=== PATIENT | female | born 1995 | race Caucasian/White ===

== ENCOUNTER 2019-06-12 18:37 | Inpatient (IN) | payer OTHER ==
[2019-06-12] MEDS ORDERED: RINGERS SOLUTION,LACTATED 300 ML IV ONE (19:05)
[2019-06-12 19:12] LABS: APPEARANCE,URINE SLIGHTLY-CLOUDY; BILIRUBIN,URINE NEGATIVE (NEGATIVE); COLOR,URINE YELLOW; GLUCOSE, URINE NEGATIVE (NEGATIVE); KETONES,URINE NEGATIVE (NEGATIVE); LEUKOCYTE ESTERASE,URINE SMALL (NEGATIVE); NITRITE,URINE NEGATIVE (NEGATIVE); PROTEIN,URINE 30 mg/dL (NEGATIVE); URINE SPECIFIC GRAVITY 1.009; UROBILINOGEN,URINE NEGATIVE mg/dL (<2.0)
[2019-06-12 19:32] LABS: URINE AMPHETAMINES SCREEN NEGATIVE; URINE BARBITURATES SCREEN NEGATIVE; URINE BENZODIAZEPINES SCREEN NEGATIVE; URINE COCAINE SCREEN NEGATIVE; URINE MARIJUANA (THC) SCREEN NEGATIVE; URINE METHADONE SCREEN NEGATIVE; URINE PHENCYCLIDINE SCREEN NEGATIVE
[2019-06-12] MEDS ORDERED: DINOPROSTONE 10 MG VAGINAL INSERT.SR ONE (19:38)
[2019-06-12] MEDS: RINGERS SOLUTION,LACTATED 1,000 ML IV PRN ×2 (19:43→23:42)
[2019-06-12 20:01] LABS: ABSOLUTE EOSINOPHILS # (AUTO) 0.1 10^3/uL (0.0-0.6); ABSOLUTE LYMPHOCYTES (AUTO) 1.2 10^3/uL (0.5-4.7); ABSOLUTE MONOCYTES (AUTO) 0.5 10^3/uL (0.1-1.4); ABSOLUTE NEUT (AUTO) 7.8 10^3/uL (1.7-8.2); BASOPHILS % (AUTO) 0.2 % (0-2); EOSINOPHILS % (AUTO) 1.1 % (0-6); HEMATOCRIT 30.5 % (36.0-47.0); HEMOGLOBIN 10.3 g/dL (12.0-15.5); LYMPHOCYTES % (AUTO) 12.2 % (13-45); MEAN CORPUSCULAR HEMOGLOBIN 25.6 pg (27.0-33.4); MEAN CORPUSCULAR HGB CONC 33.8 g/dL (32.0-36.0); MEAN CORPUSCULAR VOLUME 76 fl (80-97); MONOCYTES % (AUTO) 5.3 % (3-13); PLATELET COUNT 182 10^3/uL (150-450); RED BLOOD COUNT 4.02 10^6/uL (3.72-5.28); RED CELL DISTRIBUTION WIDTH 16.1 % (11.5-14.0); SEGMENTED NEUTROPHILS % (AUTO) 81.2 % (42-78); TOTAL CELLS COUNTED % (AUTO) 100 %; WHITE BLOOD COUNT 9.6 10^3/uL (4.0-10.5)
[2019-06-12] MEDS ORDERED: ZOLPIDEM TARTRATE 5 MG TABLET ONE (23:40)
[2019-06-13] MEDS ORDERED: ZOLPIDEM TARTRATE 5 MG TABLET PO ONE
[2019-06-13] MEDS ORDERED: PROMETHAZINE HCL INJ 25 MG/1 ML VIAL IV ONE (05:15)
[2019-06-13] MEDS ORDERED: NALBUPHINE HCL INJ 10 MG/1 ML AMPULE INJ ONE (05:15)
[2019-06-13] MEDS ORDERED: PROMETHAZINE HCL INJ 25 MG/1 ML VIAL ONE (05:16)
[2019-06-13] MEDS ORDERED: MISOPROSTOL 0.2 MG TABLET ONE (05:17)
[2019-06-13] MEDS ORDERED: LIDOCAINE 1% INJ-PF (10 MG/ML) 30 ML SDV ONE (05:17)
[2019-06-13] MEDS ORDERED: NALBUPHINE HCL INJ 10 MG/1 ML AMPULE ONE (05:17)
[2019-06-13] MEDS ORDERED: OXYTOCIN/NORMAL SALINE 20 UNIT/1,000 ML RTUINJ ONE ×2 (05:17→23:56)
[2019-06-13] MEDS ORDERED: OXYTOCIN 10 UNIT/ML VIAL ONE ×2 (05:17→23:55)
--- NOTE | 2019-06-13 07:12 | Admission Physical ---
Datetime Report Generated by CPN: 06/13/2019 07:12 CURRENT ADMISSION Chief Complaint: Scheduled Induction of Labor Indication for Induction: Gestational HTN Admit Impression : Term, Intrauterine ; Induction of Labor Admit Plan: Admit to Unit; Initiate Labor Induction Protocol ALLERGIES Medication Allergies: No Medication Allergies: No Known Allergies (06/12/2019) Latex: No Latex Allergies Food Allergies: none Environmental Allergies: None OBSTETRICAL HISTORY EDC: 06/21/2019 00:00 : 1 Para: 0 Term: 0 : 0 SAB: 0 IAB: 0 Ectopic: 0 Livin Cesareans: 0 VBACs: 0 Multiple Births: 0 Gestational Diabetes: No Rh Sensitization: No Incompetent Cervix: No SEFERINO: No Infertility: No ART Treatment: No Uterine Anomaly: No IUGR: No Hx Previous C/S: No Macrosomia: No Hx Loss/Stillborn: No PIH: No Hx : No Placenta Previa/Abruption: No Depression/PP Depression: No PTL/PROM: No Post Hemorrhage: No Current Procedures: Ultrasound; NST Obstetrical History Comments: G1 - Current SEE RECORDS Alcohol: No Marijuana : No Cocaine: No Other Illicit Drugs: No Cigarettes: Never Smoker. [id number] MEDICAL HISTORY Diabetes: No Blood Transfusion: No Pulmonary Disease (Asthma, TB): No Breast Disease: No Hypertension: Yes Nutritional Chemist Surgery: No Heart Disease: No Hosp/Surgery: No Autoimmune Disorder: No Anesthetic Complications: No Kidney Disease: No Abnormal Pap Smear: No Neuro/Epilepsy: No Psychiatric Disorders: Yes Other Medical Diseases: No Hepatitis/Liver Disease: No Significant Family History: No Varicosities/Phlebitis: No Trauma/Violence : No Thyroid Dysfunction: No Medical History Comments: Gestational HTN, Generalized Anxiety Disorder INFECTIOUS HISTORY Gonorrhea: No Genital Herpes: No Chlamydia: No Tuberculosis: No Syphilis: No Hepatitis: No HIV/AIDS Exposure: No Rash or Viral Illness: No HPV: No PHYSICAL EXAM General: Normal HEENT: Normal Neurologic: Normal Thyroid: Normal Heart: Normal Lungs: Normal Breast: Normal Back: Normal Abdomen: Normal Genitourinary Exam: Normal Extremities: Normal DTRs: Normal Pelvic Type: Adequate Vital Signs: Reviewed VAGINAL EXAM Dilatation: 3 Effacement: 80 Station: -1 MEMBRANES Pooling: Negative Membranes: Intact FETUS A EGA: 38.6 Monitoring: External US FHR- Baseline: 150 Variability: Moderate 6-25bpm Accelerations: 15X15 Decelerations: None FHR Category: Category I Estimated Weight (gm): 3500 Presentation: Vertex PLANS FOR LABOR AND DELIVERY Labor and Delivery: None Pain Management: Epidural Feeding Preference: Breast Circumcision: N/A INFORMED CONSENT Signature: with User ID: [email or web address]
[2019-06-13] MEDS: RINGERS SOLUTION,LACTATED 1,000 ML IV PRN ×3 (07:33→17:29)
[2019-06-13] MEDS ORDERED: BUPIVACAINE HCL 0.25 % INJ/PF (2.5 MG/1 ML) 30 ML VIAL ONE (11:37)
[2019-06-13] MEDS ORDERED: FENTANYL CITRATE INJ/PF 100 MCG/2 ML AMPUL ONE ×2 (11:37→23:56)
[2019-06-13] MEDS ORDERED: FENTANYL/BUPIVACAINE/NS/PF 300 MCG/150 ML RTUINJ EPI ONE (11:37)
[2019-06-13] MEDS ORDERED: EPHEDRINE SULFATE INJ 50 MG/1 ML AMPULE ONE ×3 (11:37→23:56)
[2019-06-13] MEDS ORDERED: PHENYLEPHRINE HCL INJ/PF 10 MG/1 ML SDV ONE ×2 (11:37→23:57)
[2019-06-13] MEDS ORDERED: MAG HYDROX/AL HYDROX/SIMETH SUSP 30 ML UDCUP ONE (14:36)
[2019-06-13] MEDS ORDERED: GENTAMICIN SULFATE INJ 80 MG/2 ML VIAL IV ONE (18:38)
[2019-06-13] MEDS ORDERED: ACETAMINOPHEN 325 MG TABLET ONE (18:45)
[2019-06-13] MEDS ORDERED: AMPICILLIN SODIUM 2 GM in NORMAL SALINE 100 ML IV ONE (19:00)
[2019-06-13] MEDS ORDERED: ACETAMINOPHEN 325 MG TABLET PO ONE (19:03)
[2019-06-13] MEDS ORDERED: GENTAMICIN SULFATE INJ 80 MG/2 ML VIAL ONE (19:06)
[2019-06-13 19:09] LABS: ABSOLUTE BASOPHILS # (AUTO) 0.1 10^3/uL (0.0-0.2); ABSOLUTE LYMPHOCYTES (AUTO) 1.3 10^3/uL (0.5-4.7); ABSOLUTE MONOCYTES (AUTO) 0.8 10^3/uL (0.1-1.4); ABSOLUTE NEUT (AUTO) 12.1 10^3/uL (1.7-8.2); BASOPHILS % (AUTO) 0.4 % (0-2); HEMATOCRIT 32.9 % (36.0-47.0); HEMOGLOBIN 10.6 g/dL (12.0-15.5); LYMPHOCYTES % (AUTO) 9.3 % (13-45); MEAN CORPUSCULAR HEMOGLOBIN 24.8 pg (27.0-33.4); MEAN CORPUSCULAR HGB CONC 32.2 g/dL (32.0-36.0); MEAN CORPUSCULAR VOLUME 77 fl (80-97); MONOCYTES % (AUTO) 5.4 % (3-13); PLATELET COUNT 190 10^3/uL (150-450); RED BLOOD COUNT 4.26 10^6/uL (3.72-5.28); RED CELL DISTRIBUTION WIDTH 16.7 % (11.5-14.0); SEGMENTED NEUTROPHILS % (AUTO) 84.9 % (42-78); TOTAL CELLS COUNTED % (AUTO) 100 %; WHITE BLOOD COUNT 14.2 10^3/uL (4.0-10.5)
[2019-06-13] MEDS ORDERED: LIDOCAINE 2% INJ-PF (20 MG/ML) 10 ML AMPUL ONE ×3 (19:11→23:54)
[2019-06-13 19:23] LABS: ALBUMIN 3.3 g/dL (3.5-5.0); ALKALINE PHOSPHATASE 238 U/L (38-126); ANION GAP 10 (5-19); ASPARTATE AMINO TRANSFERASE 25 U/L (14-36); BILIRUBIN,DIRECT 0.3 mg/dL (0.0-0.4); BILIRUBIN,TOTAL 0.5 mg/dL (0.2-1.3); BLOOD UREA NITROGEN 8 mg/dL (7-20); CALCIUM 8.8 mg/dL (8.4-10.2); CARBON DIOXIDE 19 mmol/L (22-30); CHLORIDE 106 mmol/L (98-107); GLUCOSE 86 mg/dL (75-110); POTASSIUM 4.4 mmol/L (3.6-5.0); TOTAL PROTEIN 6.5 g/dL (6.3-8.2); URIC ACID 5.7 mg/dL (2.5-6.2)
[2019-06-13] MEDS ORDERED: CEFAZOLIN INJ 1 GM VIAL ONE (23:39)
[2019-06-13] MEDS ORDERED: CITRIC ACID/SODIUM CITRATE ORAL SOLN 15 ML UDCUP ONE (23:39)
[2019-06-13] MEDS ORDERED: CEFAZOLIN SODIUM 2 GM in DEXTROSE 5%-WATER 50 ML IV PRN (23:42)
[2019-06-13] MEDS ORDERED: SODIUM BICARBONATE 4.2% INJ (2.5 MEQ/5 ML) VIAL ONE (23:43)
[2019-06-13] MEDS ORDERED: LIDOCAINE 1.5%/EPINEPHRINE INJ 5 ML AMP ONE (23:43)
[2019-06-13] MEDS ORDERED: ONDANSETRON HCL INJ/PF 4 MG/2 ML SDV ONE (23:56)
[2019-06-13] MEDS ORDERED: MIDAZOLAM 2 MG/2 ML INJ ONE (23:56)
[2019-06-13] MEDS ORDERED: KETOROLAC TROMETHAMINE INJ/PF 30 MG/1 ML SDV ONE (23:56)
[2019-06-13] MEDS ORDERED: ACETAMINOPHEN 1,000 MG/100 ML RTUPB IV ONE (23:56)
[2019-06-14] MEDS ORDERED: LIDOCAINE 1.5%/EPINEPHRINE INJ 5 ML AMP ONE (00:04)
[2019-06-14] MEDS ORDERED: METHYLENE BLUE 50 MG/10 ML AMPULE ONE (01:09)
[2019-06-14] MEDS ORDERED: MIDAZOLAM 2 MG/2 ML INJ ONE (01:17)
[2019-06-14] MEDS ORDERED: OXYTOCIN 10 UNIT/ML VIAL ONE ×2 (01:18)
[2019-06-14] MEDS ORDERED: HYDROMORPHONE HCL INJ/PF 2 MG/ML AMPULE IV PRN (02:17)
[2019-06-14] MEDS ORDERED: SIMETHICONE 80 MG TAB.CHEW PO PRN (02:17)
[2019-06-14] MEDS ORDERED: RINGERS SOLUTION,LACTATED 1,000 ML IV PRN (02:17)
[2019-06-14] MEDS ORDERED: PROMETHAZINE HCL INJ 25 MG/1 ML VIAL IV PRN (02:17)
[2019-06-14] MEDS ORDERED: DIPH/PERTUSS(ACELL)/TETANUS VAC/PF 0.5 ML SYR (>=10YO) IM PRN (02:17)
[2019-06-14] MEDS ORDERED: MEASLES,MUMPS&RUBELLA VACC/PF 0.5 ML VIAL SUBCUT PRN (02:17)
[2019-06-14] MEDS ORDERED: NORMAL SALINE 1000 ML 1,000 ML IV PRN (02:17)
[2019-06-14] MEDS ORDERED: ACETAMINOPHEN 1,000 MG/100 ML RTUPB IV PRN (02:17)
[2019-06-14] MEDS ORDERED: OXYTOCIN/NORMAL SALINE 20 UNIT/1,000 ML RTUINJ IV PRN (02:17)
[2019-06-14] MEDS ORDERED: ACETAMINOPHEN 325 MG TABLET PO PRN (02:17)
[2019-06-14] MEDS ORDERED: OXYCODONE-ACETAMINOPHEN 5-325 MG TABLET PO PRN (02:17)
--- NOTE | 2019-06-14 02:30 | Brief Operative Note ---
BRIEF OPERATIVE REPORT DATE OF SURGERY: 06/14/19 TIME OF SURGERY: 02:00 PREOPERATIVE DIAGNOSIS: Arrest of Descent, 39+0ega, GHTN POSTOPERATIVE DIAGNOSIS: RENALDO - deep transverse arrest with uterine incision extension SURGEON: BRENTON MAYFIELD 1ST NETEZZA DEVELOPER: SITA DAMON FINDINGS: VFI delivered at 0034. weight 6#12oz, Apgars 7/9, normal bilateral tubes and ovaries, Uterine extension from lower uterine segment in t shape into cervix. Bladder backfilled with sterile milk and no evidence of bladder injury. IVF 2200ml, UOP 250ml, QBL 1005ml, EBL 800ml COMPLICATIONS: uterine extension ESTIMATED BLOOD LOSS: 1005 TISSUE REMOVED OR ALTERED: placenta and cord TECHNICAL PROCEDURE: Primary section
--- NOTE | 2019-06-14 02:30 | Operative Report ---
Operative Report DATE OF SURGERY: 06/14/19 PREOPERATIVE DIAGNOSIS: Arrest of Descent, 39+0ega, GHTN, Meconium, Chorioamnio nitis POSTOPERATIVE DIAGNOSIS: RENALDO - deep transverse arrest OPERATION: Primary section SURGEON: BRENTON MAYFIELD 1ST CARE CLINICIAN: SITA DAMON ANESTHESIA: Epidural TISSUE REMOVED OR ALTERED: placenta and cord COMPLICATIONS: extension of uterine incision down the middle of cervix towards the vagina ESTIMATED BLOOD LOSS: 800 QUANTITATIVE BLOOD LOSS: 1,005 INTRAOPERATIVE FINDINGS: VFI delivered at 0034. weight 6#12oz, Apgars 7/9, normal bilateral tubes and ovaries, Uterine extension from lower uterine segment in t shape into cervix. Bladder backfilled with sterile milk and no evidence of bladder injury. IVF 2200ml, UOP 250ml, QBL 1005ml, EBL 800ml PROCEDURE: Anesthesia provider: [Vernon Villeda CRNA, Grace Parekh MD] Urine output: [250ml] IV fluids: [2200ml] Indications: [23yo at 39+0ega was brought in for induction due to GHTN at 38+6ega and cervidil was initiated on 06/12/2019. In the morning on 06/13/2019 when cervidil was removed cvx was 3/80/-1 and AROM was performed. Then pitocin was initiated to help promote more regular contractions and continue induction of labor process. She was 8cm/c/0 by report at 1645 when IUPC was attempted to be placed by CNM. Upon my exam at 1930 without contraction cvx 9/c/-1 and with contraction head descends to 0 station. Reviewed with patient concerns for reported size two weeks ago 7#13oz and pelvis outlet is constricted with prominent pubic bone. However, two hours later cervical exam was c/c/+1 without contraction and patient was feeling immense urge to push. She pushed for two hours and then station remains at +1 station] Procedure: The patient was taken to the operating room where spinal anesthesia was obtained and found to be adequate. She was then prepped and draped in the normal sterile fashion and placed in the dorsal supine position with a leftward tilt. A Pfannenstiel skin incision was then made and carried through to the underlying layers of the fascia with the scalpel. The fascia was incised in the midline and the incision extended laterally with the Levi scissors. The superior aspect of the fascial incision was then grasped with Jodi clamps elevated and the underlying rectus muscles dissected off [bluntly]. Attention was then turned to the inferior aspect of the fascial incision which in a kyaw lar fashion was grasped, tented up with Mushtaq clamps, and the rectus muscles dissected off [bluntly]. The rectus muscles were then in the midline and the peritoneum at the amount identified and entered [bluntly]. The peritoneal incision was then extended superiorly and inferiorly with good visualization of the bladder. The bladder blade was inserted and the vesicouterine peritoneum identified grasped with Georgian pickups and entered sharply with the Metzenbaum scissors. This incision was then extended laterally with the Metzenbaum scissors and a bladder flap created digitally. The bladder blade was then reinserted and the lower uterine segment incised in a transverse fashion with the scalpel. The uterine incision was then extended bluntly. The bladder blade was removed and the infant's head was delivered from cephalic presentation atraumatically. The nose and mouth were suctioned and the cord doubly clamped and cut. And the was handed off to waiting pediatricians. The placenta was then delivered spontaneously and the uterus exteriorized and cleared of all clots and debris. The uterine incision was then repaired with 1- 0 Vicryl in a running locked fashion. A second layer of the same suture was used to obtain hemostasis via imbrication of the initial layer. The bladder flap was then repaired with 3-0 chromic in a running fashion. The uterus was returned to the patient's abdomen and Interceed was placed overlying the uterine incision to prevent adhesions. The gutters were cleared of all clots and debris. All operative sites were noted to be hemostatic. The fascia was reapproximated with 0 Vicryl in a running fashion from each lateral edge to the midline. The skin was closed with 3-0 Monocryl in a running subcuticular fashion with overlying Dermabond for additional dressing as well as wound closure. The patient tolerated the procedure well. Sponge lap needle and instrument counts are correct -2. 2 g of Ancef were given prior to skin incision. The patient was taken to the recovery area awake and in stable condition.
--- NOTE | 2019-06-14 02:32 | Warning Signs in Babies ---
VOD Warning Signs Datetime Report Generated by [facility]: 06/14/2019 02:31 VOD#608 -Warning Signs in Babies: Needs to be viewed. (06/12/2019 19:06:Suzie Swift RN)
[2019-06-14 02:40] LABS: HEMATOCRIT 28.5 % (36.0-47.0); HEMOGLOBIN 9.3 g/dL (12.0-15.5); MEAN CORPUSCULAR HEMOGLOBIN 25.3 pg (27.0-33.4); MEAN CORPUSCULAR HGB CONC 32.6 g/dL (32.0-36.0); MEAN CORPUSCULAR VOLUME 78 fl (80-97); PLATELET COUNT 187 10^3/uL (150-450); RED BLOOD COUNT 3.67 10^6/uL (3.72-5.28); RED CELL DISTRIBUTION WIDTH 16.6 % (11.5-14.0); WHITE BLOOD COUNT 19.8 10^3/uL (4.0-10.5)
[2019-06-14] MEDS ORDERED: OXYCODONE-ACETAMINOPHEN 5-325 MG TABLET ONE (03:10)
[2019-06-14] MEDS: OXYCODONE-ACETAMINOPHEN 5-325 MG TABLET PO PRN ×2 (03:13→22:07)
--- NOTE | 2019-06-14 03:19 | Delivery Summary ---
Del Sum A-C Datetime Report Generated by CPN: 06/14/2019 03:19 DELIVERY PERSONNEL DELIVERY PERSONNEL: [id number] Delivery Doctor:: Trixie Amaya MD Anesthesiologist:: Grace Parekh MD ICE CREAM MAN:: Vernon Villeda CRNA Labor and Delivery Nurse:: Gilda Wood RN Corrugator Operator Helper:: Luana Metzger RN Neonatal Nurse Practitioner:: ANH Porter Nursery Nurse:: Nitza Lancaster RN Service Coordinator/TERRAPIN FISHER: ST Kellie Service Coordinator/TERRAPIN FISHER: Ivonne Cordero ST MATERNAL INFORMATION Delivery Anesthesia: Epidural Medications After Delivery: Pitocin Drip 20 Units/1000ml NSS; Cytotec 1000mcg Per Rectum/Vagina Delivery QBL: 1005 Maternal Complications: Chorioamnionitis; Prolonged Second Stage > 2 Hrs LABOR SUMMARY EDC: 06/21/2019 00:00 No. Babies in Womb: 0 Attempted: No Labor Anesthesia: Epidural LABOR INFORMATION Reason for Induction: Gestational Hypertension Cervical Ripening Agents: Cervidil Oxytocin: Induction Group B Beta Strep: Negative Antibiotics # of Doses: 0 Antibiotics Time of Last Dose: 0 Name of Antibiotic Given: 0 Steroids Given: None Reason Steroids Not Administered: Not Applicable MEMBRANES Membranes Rupture Method: Artificial Rupture of Membranes: 06/13/2019 09:23 Length of Rupture (hr): 15.18 Amniotic Fluid Color: Moderate Meconium Amniotic Fluid Amount: Moderate Amniotic Fluid Odor: Normal STAGES OF LABOR Stage 3 hr: 0 Stage 3 min: 1 VAGINAL DELIVERY Episiotomy: None Laceration Repair: Not Applicable Sponge Count Correct: N/A Sharps Count Correct: N/A CSECTION DELIVERY Primary Indication: Failure of Descent CSection Urgency: Emergency CSection Incidence: Primary Labor: Labor Elective: Elective CSection Incision: Lower Uterine Transverse; T Extension of Incision CSection Incision- Other: Cervical Laceration Extended BABY A INFORMATION Delivery Date/Time: 06/14/2019 00:34 Method of Delivery: Born in Route : No : N/A Forceps: N/A Vacuum Extraction: N/A Shoulder Dystocia : No PRESENTATION/POSITION BABY A Presentation: Cephalic Cephalic Presentation: Vertex Breech Presentation: N/A PLACENTA INFORMATION BABY A Placenta Delivery Time : 06/14/2019 00:35 Placenta Method of Delivery: Manual Removal Placenta Status: Delivered SCORES BABY A Heart Rate 1 min: >100 bpm Resp Effort 1 min: Good Cry Reflex Irritability 1 min: Cough or Sneeze or Pulls Away Muscle Tone 1 min: Some Flexion of Extremities Color 1 min: Blue/Pale Resuscitation Effort 1 min: Tactile Stimulation SCORE 1 MIN: 7 Heart Rate 5 min: >100 bpm Resp Effort 5 min: Good Cry Reflex Irritability 5 min: Cough or Sneeze or Pulls Away Muscle Tone 5 min: Active Motion Color 5 min: Body [place], Extremities Blue Resuscitation Effort 5 min: Tactile Stimulation SCORE 5 MIN: 9 INFANT INFORMATION BABY A Gestational Age at Delivery: 39.0 Gestational Status: Full Term- 39- 40.6 Weeks Infant Outcome : Liveborn Infant Condition : Stable Infant Sex: Female IDENTIFICATION BABY A Infant Verification Date/Time: 06/14/2019 00:48 ID Band Number: [id number] Mother's Name Verified: Yes Infant RN Verifying : ZacharyRN Additional Verifying Personnel: DARYN Vergara WEIGHT/LENGTH BABY A Birthweight (gm): 3070 Infant Weight (lb): 6 Weight (oz): 12 Infant Length (in): 19.50 Infant Length (cm): 49.53 CORD INFORMATION BABY A No. Cord Vessels: 3 Nuchal Cord : N/A Cord Blood Taken: Yes-For Storage (Mom's Blood type +) Infant Suction: None ASSESSMENT BABY A Skin to Skin: Yes BABY B INFORMATION : N/A
[2019-06-14] MEDS: GENTAMICIN SULFATE INJ 80 MG/2 ML VIAL IV SCH ×2 (03:30→11:59)
[2019-06-14] MEDS ORDERED: CLINDAMYCIN 900 MG/D5W RTU 900 MG/50 ML RTUPB IV ONE (03:40)
[2019-06-14] MEDS: CLINDAMYCIN 900 MG/D5W RTU 900 MG/50 ML RTUPB IV SCH ×3 (03:41→19:59)
[2019-06-14] MEDS ORDERED: GENTAMICIN SULFATE 120 MG in DEXTROSE 5%-WATER 100 ML IV SCH (06:00)
[2019-06-14] MEDS ORDERED: KETOROLAC TROMETHAMINE INJ/PF 30 MG/1 ML SDV IV SCH (06:00)
[2019-06-14] MEDS ORDERED: AMPICILLIN SOD INJ 2 GM VIAL IM SCH (06:00)
[2019-06-14] MEDS ORDERED: AMPICILLIN SODIUM 2 GM in NORMAL SALINE 100 ML IV SCH (06:00)
[2019-06-14] MEDS ORDERED: GENTAMICIN SULFATE INJ 80 MG/2 ML VIAL IV PRN (06:12)
--- NOTE | 2019-06-14 10:01 | PDOC PROGRESS REPORT ---
Subjective-OB Progress Note for:: 06/14/19 - PODay #0, s/p Primary for Failed IOL/ CPD. Hx GHTN. Pt doing well this morning, awake and smiling. A+, rubella Immune, Physical Exam (OB) Vital Signs: Temp Pulse Resp BP Pulse Ox 98.7 F 105 H 16 123/95 H 99 06/14/19 08:45 06/14/19 08:45 06/14/19 08:45 06/14/19 08:45 06/14/19 08:45 Intake & Output 06/13/19 06/14/19 06/15/19 06:59 06:59 06:59 Intake Total 498 2266 320 Output Total 200 200 Balance 498 2066 120 Weight 78.6 kg - General General Appearance: Appears well, Alert In distress: None - Dressing Removed: Yes - WES Incision: Well Approximated Closure Type: Surgical Glue - Lochia Lochia Amount: Scant < 10 ml Lochia Color: Rubra/Red - Abdomen Description: Soft Hernia Present: No Fundal Description: Firm Fundal Height: u/u - u/2 - Respiratory Respiratory Status: No respiratory distress - Abdominal Distension: No distension Tenderness: Other - slightly tender on exam, appropriate - Genitourinary Genitourinary Note: medrano cath in place - Extremities Upper extremity: Normal inspection Lower extremities: Edema - Neurological Cognition: Normal Orientation: AAOx4 - Psychological Associated symptoms: Normal affect - Skin Skin Temperature: Warm Skin Moisture: Dry Objective-Diagnostic Laboratory: 06/14/19 02:34 06/13/19 18:59 06/13/19 06/13/19 06/14/19 18:59 18:59 02:34 WBC 14.2 H 19.8 H RBC 4.26 3.67 L Hgb 10.6 L 9.3 L Hct 32.9 L 28.5 L MCV 77 L 78 L MCH 24.8 L 25.3 L MCHC 32.2 32.6 RDW 16.7 H 16.6 H Plt Count 190 187 Seg Neutrophils % 84.9 H Sodium 134.9 L Potassium 4.4 Chloride 106 Carbon Dioxide 19 L Anion Gap 10 BUN 8 Creatinine 0.58 Est GFR ( Amer) > 60 Glucose 86 Uric Acid 5.7 Calcium 8.8 Total Bilirubin 0.5 AST 25 Alkaline Phosphatase 238 H Total Protein 6.5 Albumin 3.3 L Assessment and Plan(PN) - Assessment and Plan (1) Arrest of descent, delivered, current hospitalization Is this a current diagnosis for this admission?: Yes (2) Chorioamnionitis Qualifiers: Fetus number: single or unspecified fetus Trimester: third trimester Qualified Code(s): O41.1230 - Chorioamnionitis, third trimester, not applicable or unspecified Is this a current diagnosis for this admission?: Yes (3) Deep transverse arrest Qualifiers: Fetus number: single or unspecified fetus Qualified Code(s): O64.0XX0 - Obstructed labor due to incomplete rotation of head, not applicable or unspecified Is this a current diagnosis for this admission?: Yes (4) Encounter for induction of labor Is this a current diagnosis for this admission?: Yes (5) Gestational hypertension Qualifiers: Trimester: third trimester Qualified Code(s): O13.3 - Gestational [-induced] hypertension without significant proteinuria, third trimester Is this a current diagnosis for this admission?: Yes (6) S/P primary low transverse Is this a current diagnosis for this admission?: Yes (7) Thin meconium stained amniotic fluid Is this a current diagnosis for this admission?: Yes Plan:: will d/c medrano cath this afternoon, ambulation encouraged. Routine PP orders and Post Op orders - Time Spent with Patient Time with patient: Less than 15 minutes Medications reviewed and adjusted accordingly: Yes - Disposition Anticipated Discharge: Home Within: within 48 hours
[2019-06-14] MEDS: AMPICILLIN SODIUM 2 GM in NORMAL SALINE 100 ML IV SCH ×3 (10:04→22:04)
[2019-06-14] MEDS: PRENATAL VITAMIN W DHA CAPSULE PO SCH (10:04)
[2019-06-14] MEDS: KETOROLAC TROMETHAMINE INJ/PF 30 MG/1 ML SDV IV SCH ×2 (10:05→18:03)
[2019-06-14] MEDS: DOCUSATE SODIUM 100 MG CAPSULE PO SCH ×2 (10:06→18:03)
[2019-06-14] MEDS: FERROUS SULFATE 325 MG TABLET PO SCH (10:06)
[2019-06-14] MEDS: SERTRALINE HCL 50 MG TABLET PO SCH (10:06)
[2019-06-14] MEDS: GENTAMICIN SULFATE 120 MG in DEXTROSE 5%-WATER 100 ML IV SCH ×2 (11:35→18:03)
[2019-06-15] MEDS: GENTAMICIN SULFATE 120 MG in DEXTROSE 5%-WATER 100 ML IV SCH ×2 (01:47→09:34)
[2019-06-15] MEDS: CLINDAMYCIN 900 MG/D5W RTU 900 MG/50 ML RTUPB IV SCH ×2 (03:30→11:22)
[2019-06-15] MEDS: AMPICILLIN SODIUM 2 GM in NORMAL SALINE 100 ML IV SCH ×2 (05:35→13:11)
[2019-06-15] MEDS: IBUPROFEN 800 MG TABLET PO SCH ×4 (05:36→23:13)
[2019-06-15 06:51] LABS: HEMOGLOBIN 8.4 g/dL (12.0-15.5); MEAN CORPUSCULAR HGB CONC 33.6 g/dL (32.0-36.0); MEAN CORPUSCULAR VOLUME 78 fl (80-97); PLATELET COUNT 143 10^3/uL (150-450); RED BLOOD COUNT 3.23 10^6/uL (3.72-5.28); RED CELL DISTRIBUTION WIDTH 17.3 % (11.5-14.0); WHITE BLOOD COUNT 10.6 10^3/uL (4.0-10.5)
--- NOTE | 2019-06-15 08:29 | PDOC PROGRESS REPORT ---
Subjective-OB Progress Note for:: 06/15/19 Physical Exam (OB) Vital Signs: Temp Pulse Resp BP Pulse Ox 98.3 F 94 16 121/81 98 06/15/19 07:32 06/15/19 07:32 06/15/19 07:32 06/15/19 07:32 06/15/19 07:32 Intake & Output 06/14/19 06/15/19 06/16/19 06:59 06:59 06:59 Intake Total 2266 1829 Output Total 200 1800 Balance 2066 29 - PIH/Pre-Eclampsia Headache: Absent Epigastric Pain: No Visual Changes: No - Dressing Removed: - OFFICE MACHINES WIRER Incision: Well Approximated Closure Type: Surgical Glue - Lochia Lochia Amount: Scant < 10 ml Lochia Color: Rubra/Red - Abdomen Description: Tender, Soft Hernia Present: No Bowel Sounds: Normoactive Flatus Presence: Present Stool: No Fundal Description: Firm Fundal Height: u/u - u/2 Objective-Diagnostic Laboratory: 06/15/19 06:38 06/13/19 18:59 06/15/19 06:38 WBC 10.6 H RBC 3.23 L Hgb 8.4 L Hct 25.0 L MCV 78 L MCH 26.0 L MCHC 33.6 RDW 17.3 H Plt Count 143 L Assessment and Plan(PN) - Time Spent with Patient Medications reviewed and adjusted accordingly: Yes - Disposition Anticipated Discharge: Home
[2019-06-15] MEDS: PRENATAL VITAMIN W DHA CAPSULE PO SCH (09:34)
[2019-06-15] MEDS: DOCUSATE SODIUM 100 MG CAPSULE PO SCH ×2 (09:34→17:56)
[2019-06-15] MEDS: FERROUS SULFATE 325 MG TABLET PO SCH (09:34)
[2019-06-15] MEDS: SERTRALINE HCL 50 MG TABLET PO SCH (09:34)
[2019-06-16] MEDS: IBUPROFEN 800 MG TABLET PO SCH (05:19)
--- NOTE | 2019-06-16 10:23 | PDOC DISCHARGE SUMMARY ---
Impression - Admit/DC Date/PCP Admission Date/Primary Care Provider: 06/12/19 18:37 Discharge Date: 06/16/19 - Discharge Diagnosis (1) Arrest of descent, delivered, current hospitalization Is this a current diagnosis for this admission?: Yes (2) Chorioamnionitis Is this a current diagnosis for this admission?: Yes (3) Deep transverse arrest Is this a current diagnosis for this admission?: Yes (4) Encounter for induction of labor Is this a current diagnosis for this admission?: Yes (5) Gestational hypertension Is this a current diagnosis for this admission?: Yes (6) S/P primary low transverse Is this a current diagnosis for this admission?: Yes (7) Thin meconium stained amniotic fluid Is this a current diagnosis for this admission?: Yes - Additional Information Resuscitation Status: Full Code Discharge Diet: Regular Discharge Activity: Balance Activity w/Rest, Pelvic Rest [facility] [[facility]] Prescriptions: Oxycodone HCl/Acetaminophen [Percocet 5-325 mg Tablet] 1 tab PO Q4HP PRN #30 tablet PRN Reason: Pain Scale Of 3 Ibuprofen [Motrin 800 mg Tablet] 800 mg PO Q8HP PRN #60 tablet PRN Reason: pain Home Medications: Ferrous Sulfate [Iron] 325 mg PO DAILY 06/12/19 Vit No.130/Iron/Folic [ Tablet] 1 each PO DAILY 06/12/19 Sertraline HCl 100 mg PO DAILY 06/12/19 Ibuprofen [Motrin 800 mg Tablet] 800 mg PO Q8HP PRN #60 tablet 06/16/19 Oxycodone HCl/Acetaminophen [Percocet 5-325 mg Tablet] 1 tab PO Q4HP PRN #30 tablet 06/16/19 Results Laboratory Results: WBC 10.6 10^3/uL (4.0-10.5) H 06/15/19 06:38 RBC 3.23 10^6/uL (3.72-5.28) L 06/15/19 06:38 Hgb 8.4 g/dL (12.0-15.5) L 06/15/19 06:38 Hct 25.0 % (36.0-47.0) L 06/15/19 06:38 MCV 78 fl (80-97) L 06/15/19 06:38 MCH 26.0 pg (27.0-33.4) L 06/15/19 06:38 MCHC 33.6 g/dL (32.0-36.0) 06/15/19 06:38 RDW 17.3 % (11.5-14.0) H 06/15/19 06:38 Plt Count 143 10^3/uL (150-450) L 06/15/19 06:38 Lymph % (Auto) 9.3 % (13-45) L 06/13/19 18:59 [place]ison % (Auto) 5.4 % (3-13) 06/13/19 18:59 Eos % (Auto) 0.0 % (0-6) 06/13/19 18:59 Baso % (Auto) 0.4 % (0-2) 06/13/19 18:59 Absolute Neuts (auto) 12.1 10^3/uL (1.7-8.2) H 06/13/19 18:59 Absolute Lymphs (auto) 1.3 10^3/uL (0.5-4.7) 06/13/19 18:59 Absolute Monos (auto) 0.8 10^3/uL (0.1-1.4) 06/13/19 18:59 Absolute Eos (auto) 0.0 10^3/uL (0.0-0.6) 06/13/19 18:59 Absolute Basos (auto) 0.1 10^3/uL (0.0-0.2) 06/13/19 18:59 Seg Neutrophils % 84.9 % (42-78) H 06/13/19 18:59 Sodium 134.9 mmol/L (137-145) L 06/13/19 18:59 Potassium 4.4 mmol/L (3.6-5.0) 06/13/19 18:59 Chloride 106 mmol/L (98-107) 06/13/19 18:59 Carbon Dioxide 19 mmol/L (22-30) L 06/13/19 18:59 Anion Gap 10 (5-19) 06/13/19 18:59 BUN 8 mg/dL (7-20) 06/13/19 18:59 Creatinine 0.58 mg/dL (0.52-1.25) 06/13/19 18:59 Est GFR ( Amer) > 60 (>60) 06/13/19 18:59 Est GFR (MDRD) Non-Af > 60 (>60) 06/13/19 18:59 Glucose 86 mg/dL (75-110) 06/13/19 18:59 Uric Acid 5.7 mg/dL (2.5-6.2) 06/13/19 18:59 Calcium 8.8 mg/dL (8.4-10.2) 06/13/19 18:59 Total Bilirubin 0.5 mg/dL (0.2-1.3) 06/13/19 18:59 Direct Bilirubin 0.3 mg/dL (0.0-0.4) 06/13/19 18:59 Neonat Total Bilirubin Not Reportable 06/13/19 18:59 Neonat Direct Bilirubin Not Reportable 06/13/19 18:59 Neonat Indirect Bili Not Reportable 06/13/19 18:59 AST 25 U/L (14-36) 06/13/19 18:59 ALT 12 U/L (<35) 06/13/19 18:59 Alkaline Phosphatase 238 U/L (38-126) H 06/13/19 18:59 Lactate Dehydrogenase 170 U/L (120-246) 06/13/19 18:59 Total Protein 6.5 g/dL (6.3-8.2) 06/13/19 18:59 Albumin 3.3 g/dL (3.5-5.0) L 06/13/19 18:59 Urine Color YELLOW 06/12/19 18:50 Urine Appearance SLIGHTLY-CLOUDY 06/12/19 18:50 Urine pH 7.0 (5.0-9.0) 06/12/19 18:50 Ur Specific [place] 1.009 06/12/19 18:50 Urine Protein 30 mg/dL (NEGATIVE) H 06/12/19 18:50 Urine Glucose (UA) NEGATIVE mg/dL (NEGATIVE) 06/12/19 18:50 Urine Ketones NEGATIVE mg/dL (NEGATIVE) 06/12/19 18:50 Urine Blood NEGATIVE (NEGATIVE) 06/12/19 18:50 Urine Nitrite NEGATIVE (NEGATIVE) 06/12/19 18:50 Urine Bilirubin NEGATIVE (NEGATIVE) 06/12/19 18:50 Urine Urobilinogen NEGATIVE mg/dL (<2.0) 06/12/19 18:50 Ur Leukocyte Esterase SMALL (NEGATIVE) H 06/12/19 18:50 Urine Ascorbic Acid NEGATIVE (NEGATIVE) 06/12/19 18:50 Urine Opiates Screen NEGATIVE 06/12/19 18:50 Urine Methadone Screen NEGATIVE 06/12/19 18:50 Ur Barbiturates Screen NEGATIVE 06/12/19 18:50 Ur Phencyclidine Scrn NEGATIVE 06/12/19 18:50 Ur Amphetamines Screen NEGATIVE 06/12/19 18:50 U Benzodiazepines Scrn NEGATIVE 06/12/19 18:50 Urine Cocaine Screen NEGATIVE 06/12/19 18:50 U Marijuana (THC) Screen NEGATIVE 06/12/19 18:50 RPR NONREACTIVE (NONREACTIVE) 06/12/19 19:29 Blood Type A POSITIVE 06/12/19 19:29 Antibody Screen NEGATIVE 06/12/19 19:29
[2019-06-16] MEDS: PRENATAL VITAMIN W DHA CAPSULE PO SCH (11:15)
[2019-06-16] MEDS: DOCUSATE SODIUM 100 MG CAPSULE PO SCH (11:15)
[2019-06-16] MEDS: FERROUS SULFATE 325 MG TABLET PO SCH (11:15)
[2019-06-16 11:37] LABS: HEPATITIS C VIRUS AB <0.1 s/co ratio (0.0-0.9)
[2019-06-16 11:51] VITALS: BP 135/86
== END 2019-06-16 12:12 | disposition home or self-care (01) | DRG 786 ==
LOC: LR 18:37 → 2S 06-14 04:01
PROVIDERS: ADMIT Obstetrics & Gynecology; ATTEND Obstetrics & Gynecology
PROC: 10D00Z1 Extraction of Products of Conception, Low, Open Approach (ICD-10-PCS; principal; 2019-06-14)
DX: O13.4 Gestational [pregnancy-induced] hypertension without significant proteinuria, complicating childbirth (principal); O41.1230 Chorioamnionitis, third trimester, not applicable or unspecified; O64.0XX0 Obstructed labor due to incomplete rotation of fetal head, not applicable or unspecified; O77.0 Labor and delivery complicated by meconium in amniotic fluid; O99.344 Other mental disorders complicating childbirth; O62.1 Secondary uterine inertia; F41.9 Anxiety disorder, unspecified; O63.1 Prolonged second stage (of labor); Z3A.39 39 weeks gestation of pregnancy; Z37.0 Single live birth
CPT/HCPCS: 1961; 36415; 80053; 80307; 81005; 83615; 84550; 85025; 85027; 86592; 86803; 86804; 86850; 86900; 86901; 94760; C1765; J0131; J0290; J0690; J1580; J1885; J2250; J2300; J2370; J2405; J2550; J2590; J3010; J3490; J7050; J7060; Q9968